=== PATIENT | female | born 1965 | race Caucasian/White ===

== ENCOUNTER → 2016-09-09 | Outpatient (CLI) | payer MEDICARE | LOC: KOH-I 15:33 | DX: J20.9 Acute bronchitis, unspecified (principal); R91.8 Other nonspecific abnormal finding of lung field | CPT/HCPCS: 71020 ==

== ENCOUNTER 2016-09-12 12:34 | Emergency (ER) | payer MEDICARE ==
[2016-09-12 14:58] LABS: HEMOGLOBIN 13.2 gm/dl (12.3-15.3); RED BLOOD COUNT 4.35 M/UL (4.00-5.10)
[2016-09-12 15:17] LABS: BUN/CREATININE RATIO 19 (0-10)
== END 2016-09-12 18:00 | disposition home or self-care (01) ==
LOC: ER1 12:34
PROVIDERS: Specialist/Technologist Athletic Trainer
DX: J44.9 Chronic obstructive pulmonary disease, unspecified (principal); R74.8 Abnormal levels of other serum enzymes; I11.0 Hypertensive heart disease with heart failure; I50.9 Heart failure, unspecified; G47.33 Obstructive sleep apnea (adult) (pediatric)
CPT/HCPCS: 36415; 71250; 80053; 81001; 82550; 82553; 83880; 84484; 85025; 85379; 85610; 85730; 99285

== ENCOUNTER → 2016-11-08 | Outpatient (CLI) | payer MEDICARE ==
[2016-11-08 13:11] LABS: BUN/CREATININE RATIO 20 (0-10)
== END ==
LOC: LAB 12:37
PROVIDERS: Internal Medicine Cardiovascular Disease
DX: I42.9 Cardiomyopathy, unspecified (principal)
CPT/HCPCS: 36415; 80048

== ENCOUNTER → 2021-04-02 | Outpatient (CLI) | payer OTHER ==
[~2021-04-02] MED LIST: MORPHINE SULFAT15 M1 PO
[2021-04-02 15:38] LABS: BUN/CREATININE RATIO 11 (0-10)
== END ==
LOC: LAB 13:02
DX: I42.9 Cardiomyopathy, unspecified (principal); I50.9 Heart failure, unspecified
CPT/HCPCS: 36415; 80048

== ENCOUNTER → 2021-04-09 | Outpatient (CLI) | payer OTHER ==
[2021-04-09 13:36] LABS: BUN/CREATININE RATIO 12 (0-10)
== END ==
LOC: LAB 12:38
DX: I42.9 Cardiomyopathy, unspecified (principal); I50.9 Heart failure, unspecified
CPT/HCPCS: 36415; 80048

== ENCOUNTER → 2021-04-16 | Outpatient (CLI) | payer OTHER ==
[2021-04-16 17:27] LABS: BUN/CREATININE RATIO 13 (0-10)
== END ==
LOC: LAB 13:45
PROVIDERS: Nurse Practitioner
DX: I42.9 Cardiomyopathy, unspecified (principal); I50.9 Heart failure, unspecified; E66.9 Obesity, unspecified
CPT/HCPCS: 36415; 71046; 80048

== ENCOUNTER → 2021-04-23 | Outpatient (CLI) | payer OTHER ==
[2021-04-23 13:07] LABS: BUN/CREATININE RATIO 9 (0-10)
== END ==
LOC: LAB 11:58
PROVIDERS: Nurse Practitioner
DX: I42.9 Cardiomyopathy, unspecified (principal); I50.9 Heart failure, unspecified
CPT/HCPCS: 36415; 80048

== ENCOUNTER → 2021-05-07 | Outpatient (CLI) | payer OTHER ==
[2021-05-07 15:38] LABS: BUN/CREATININE RATIO 17 (0-10)
== END ==
LOC: LAB 13:31
PROVIDERS: Nurse Practitioner
DX: I42.9 Cardiomyopathy, unspecified (principal); I50.9 Heart failure, unspecified
CPT/HCPCS: 36415; 80048

== ENCOUNTER → 2021-05-21 | Outpatient (CLI) | payer OTHER ==
[2021-05-21 12:40] LABS: BUN/CREATININE RATIO 12 (0-10)
== END ==
LOC: LAB 11:01
PROVIDERS: Nurse Practitioner
DX: I42.9 Cardiomyopathy, unspecified (principal)
CPT/HCPCS: 36415; 80048

== ENCOUNTER → 2021-06-05 | Outpatient (CLI) | payer OTHER ==
[2021-06-05 12:17] LABS: BUN/CREATININE RATIO 14 (0-10)
== END ==
LOC: LAB 10:59
PROVIDERS: Nurse Practitioner
DX: I50.9 Heart failure, unspecified (principal); I42.9 Cardiomyopathy, unspecified
CPT/HCPCS: 36415; 80048

== ENCOUNTER → 2021-06-13 | Outpatient (CLI) | payer OTHER ==
[2021-06-13 11:12] LABS: BUN/CREATININE RATIO 14 (0-10)
== END ==
LOC: LAB 10:19
PROVIDERS: Nurse Practitioner
DX: I42.9 Cardiomyopathy, unspecified (principal); I50.9 Heart failure, unspecified
CPT/HCPCS: 36415; 80048

== ENCOUNTER → 2021-06-28 | Outpatient (CLI) | payer OTHER ==
[2021-06-28 14:15] LABS: BUN/CREATININE RATIO 10 (0-10)
== END ==
LOC: LAB 13:29
PROVIDERS: Nurse Practitioner
DX: I42.9 Cardiomyopathy, unspecified (principal); I50.9 Heart failure, unspecified
CPT/HCPCS: 36415; 80048

== ENCOUNTER → 2022-01-09 | Outpatient (CLI) | payer OTHER | LOC: EMI 01-03 09:30 | DX: M54.89 Other dorsalgia (principal) | CPT/HCPCS: 72148 ==